=== PATIENT | female | born 1985 | race Caucasian/White ===

== ENCOUNTER 2023-08-22 17:26 | Emergency (ER) | payer BC ==
[2023-08-22] MEDS: Acetaminophen 500 MG Tab PO ONE (19:59)
== END 2023-08-22 20:48 | disposition home or self-care (01) ==
LOC: JP.ED 17:26
DX: S93.402A Sprain of unspecified ligament of left ankle, initial encounter (principal); Z79.899 Other long term (current) drug therapy; Z87.891 Personal history of nicotine dependence; X50.1XXA Overexertion from prolonged static or awkward postures, initial encounter; Y93.89 Activity, other specified
CPT/HCPCS: 73610; 99283; A9270